=== PATIENT | female | born 1995 | race Caucasian/White ===

== ENCOUNTER 2019-04-13 07:37 | Outpatient (REF) | payer MEDICAID, SELFPAY ==
[2019-04-13 21:18] LABS: ALT 34 U/L (14-59); AST 16 U/L (15-37); Albumin 3.7 g/dL (3.4-5.0); Alkaline Phosphatase 77 U/L (46-116); BUN 15 mg/dL (7-18); Bilirubin, Total 0.5 mg/dL (0.2-1.0); CREATININE 0.71 mg/dL (0.55-1.02); Calcium 9.2 mg/dL (8.5-10.1); Calculated LDL 105 mg/dL; Chloride 106 mmol/L (98-107); Cholesterol 172 mg/dL (<200); Glucose 87 mg/dL (74-106); HDL Cholesterol 29 mg/dL (40-60); Potassium 4.3 mmol/L (3.5-5.1); Sodium 143 mmol/L (136-145); Total Protein 7.7 g/dL (6.4-8.2); Triglyceride 191 mg/dL (<150)
[2019-04-14 14:46] LABS: Hemoglobin A1C 5.5 % (3.8-5.6)
== END 2019-04-13 07:57 ==
LOC: NCHCN 07:37
PROVIDERS: PCP Family Medicine; Visit Provider Family Medicine
DX: R73.09 Other abnormal glucose (principal); E66.9 Obesity, unspecified; Z00.00 Encounter for general adult medical examination without abnormal findings
CPT/HCPCS: 80053; 80061; 83036

== ENCOUNTER 2019-04-16 11:45 | Outpatient (REF) | payer MEDICAID, SELFPAY ==
--- NOTE | 2019-04-16 10:45 | PAPFT_PTH ---
PATIENT: Roselyn Gracia LOC: [facility] U#:[id number] AGE/SX: 24/F ROOM: RE04/16/[address]: Cierra Lopez : 1995 BED: DIS: 04/16/2019 SPEC #: [id number] RECD: 04/17/19 13:17 STATUS: JOHN REJayy #: [id number] NII: 04/16/19 10:[address]: Cierra Lopez DEPT: [facility] Cytology RECD BY: Lala Sanford Tissues: 1 - CX/ENDOCX FOR PAP SMEARS Procedures: PAP THIN PREP/[facility] Screening Comments: [id number]
== END 2019-04-16 12:05 ==
LOC: NCHCN 11:45
PROVIDERS: PCP Family Medicine; Visit Provider Family Medicine
DX: Z12.4 Encounter for screening for malignant neoplasm of cervix (principal)
CPT/HCPCS: 88142

== ENCOUNTER 2020-04-22 10:59 | Outpatient (REF) | payer MEDICAID, SELFPAY ==
[2020-04-22 14:15] LABS: ALT 30 U/L (14-59); AST 20 U/L (15-37); Albumin 3.7 g/dL (3.4-5.0); Alkaline Phosphatase 85 U/L (46-116); Anion Gap 10.6 mmol/L (3-11); BUN 9 mg/dL (7-18); Bilirubin, Total 0.7 mg/dL (0.2-1.0); CO2 26.4 mmol/L (21.0-32.0); Calcium 8.9 mg/dL (8.5-10.1); Calculated LDL 172 mg/dL (<100); Chloride 98 mmol/L (98-107); Cholesterol 248 mg/dL (<200); Glucose 76 mg/dL (74-106); HDL Cholesterol 43 mg/dL (40-60); Potassium 3.6 mmol/L (3.5-5.1); Sodium 135 mmol/L (136-145); Total Protein 7.7 g/dL (6.4-8.2); Triglyceride 167 mg/dL (<150)
[2020-04-22 14:31] LABS: Hemoglobin A1C 5.3 % (<5.7)
== END 2020-04-22 11:19 ==
LOC: NCHCN 10:59
PROVIDERS: PCP Family Medicine; Visit Provider Family Medicine
DX: R73.09 Other abnormal glucose (principal); E88.81 Metabolic syndrome and other insulin resistance; E78.1 Pure hyperglyceridemia; E78.6 Lipoprotein deficiency; Z00.00 Encounter for general adult medical examination without abnormal findings
CPT/HCPCS: 80053; 80061; 83036

== ENCOUNTER 2020-07-05 09:32 | Outpatient (REF) | payer MEDICAID, SELFPAY ==
[2020-07-05 13:54] LABS: ALT 32 U/L (14-59); AST 18 U/L (15-37); Albumin 3.8 g/dL (3.4-5.0); Alkaline Phosphatase 99 U/L (46-116); Bilirubin, Total 0.7 mg/dL (0.2-1.0); Calculated LDL 101 mg/dL (<100); Cholesterol 162 mg/dL (<200); HDL Cholesterol 44 mg/dL (40-60); TSH (W/Ref FT4) 1.29 uIU/mL (0.36-3.74); Total Protein 7.8 g/dL (6.4-8.2); Triglyceride 87 mg/dL (<150)
[2020-07-05 14:07] LABS: Bilirubin, Direct 0.1 mg/dL (0.0-0.2)
== END 2020-07-05 09:33 | disposition home or self-care (01) ==
LOC: NCHCN 09:32
PROVIDERS: PCP Family Medicine; Visit Provider Family Medicine
DX: E78.5 Hyperlipidemia, unspecified (principal); E66.01 Morbid (severe) obesity due to excess calories; Z00.00 Encounter for general adult medical examination without abnormal findings
CPT/HCPCS: 80061; 80076; 84443

== ENCOUNTER 2022-03-13 13:27 | Outpatient (REF) | payer MEDICAID, SELFPAY ==
--- NOTE | 2022-03-13 10:20 | PAPFT_PTH ---
PATIENT: Roselyn Gracia LOC: [facility]#:[id number] AGE/SX: 26/F ROOM: RE03/13/[address]: Cierra Lopez : 1995 BED: DIS: 03/13/2022 SPEC #: [id number] RECD: 03/14/22 12:50 STATUS: JOHN REQ #: [id number] NII: 03/13/22 10:[address]: Cierra Lopez DEPT: [facility] Cytology RECD BY: Lala Sanford Tissues: 1 - CX/ENDOCX FOR PAP SMEARS Procedures: PAP THIN PREP/[facility] Screening Comments: [id number] (CHLAMYDIA/GC)
[2022-03-13 16:08] LABS: ALT 71 U/L (14-59); AST 25 U/L (15-37); Albumin 3.5 g/dL (3.4-5.0); Alkaline Phosphatase 81 U/L (46-116); Anion Gap 10.3 mmol/L (3-11); BUN 9 mg/dL (7-18); Bilirubin, Total 0.5 mg/dL (0.2-1.0); CO2 25.7 mmol/L (21.0-32.0); CREATININE 0.7 mg/dL (0.55-1.02); Calculated LDL 137 mg/dL (<100); Chloride 100 mmol/L (98-107); Cholesterol 224 mg/dL (<200); Estimated GFR 123.01 (mL/min/1.73m2); Glucose 97 mg/dL (74-106); HDL Cholesterol 42 mg/dL (40-60); Sodium 136 mmol/L (136-145); Total Protein 7.7 g/dL (6.4-8.2); Triglyceride 228 mg/dL (<150)
[2022-03-13 16:43] LABS: Hemoglobin A1C 5.3 % (<5.7)
[2022-03-15 15:08] LABS: Chlamydia Result Negative (Negative); GC Result Negative (Negative)
== END 2022-03-13 13:28 | disposition home or self-care (01) ==
LOC: NCHCN 13:27
PROVIDERS: PCP Family Medicine; Visit Provider Family Medicine
DX: E78.5 Hyperlipidemia, unspecified (principal); R73.09 Other abnormal glucose; Z00.00 Encounter for general adult medical examination without abnormal findings; Z12.4 Encounter for screening for malignant neoplasm of cervix; Z11.3 Encounter for screening for infections with a predominantly sexual mode of transmission
CPT/HCPCS: 80053; 80061; 87491; 87591; 88142; 83036

== ENCOUNTER 2022-12-13 11:56 | Outpatient (REF) | payer OTHER, SELFPAY ==
[2022-12-17 10:51] LABS: HBs Antibody, Quant 22.5 mIU/mL (See Note); Hepatitis B Surface Ab Positive (See Note)
[2022-12-17 11:28] LABS: Hepatitis C Ab w Rflx HCV PCR Negative (Negative)
[2022-12-17 12:04] LABS: HIV-1/2 Ag & Ab Screen Negative (Negative)
== END 2022-12-13 11:57 | disposition home or self-care (01) ==
LOC: NCHCN 11:56
PROVIDERS: PCP Family Medicine; Visit Provider Nurse Practitioner Family
DX: Z77.21 Contact with and (suspected) exposure to potentially hazardous body fluids (principal); Z11.59 Encounter for screening for other viral diseases; Z11.4 Encounter for screening for human immunodeficiency virus [HIV]; Z01.84 Encounter for antibody response examination
CPT/HCPCS: 86706; 86803; 87389

== ENCOUNTER 2022-12-28 22:47 | Outpatient (REF) | payer OTHER, SELFPAY ==
[2022-12-28 21:45] LABS: ALT 32 U/L (14-59); AST 22 U/L (15-37); Albumin 3.5 g/dL (3.4-5.0); Alkaline Phosphatase 90 U/L (46-116); Anion Gap 9.6 mmol/L (3-11); BUN 16 mg/dL (7-18); Bilirubin, Total 0.4 mg/dL (0.2-1.0); CO2 24.4 mmol/L (21.0-32.0); CREATININE 0.9 mg/dL (0.55-1.02); Calcium 9.4 mg/dL (8.5-10.1); Chloride 100 mmol/L (98-107); Estimated GFR 90.42 (mL/min/1.73m2); Glucose 106 mg/dL (74-106); Sodium 134 mmol/L (136-145); Total Protein 8.1 g/dL (6.4-8.2)
== END 2022-12-28 22:48 | disposition home or self-care (01) ==
LOC: NCHCN 22:47
PROVIDERS: PCP Family Medicine; Visit Provider Family Medicine
DX: R79.89 Other specified abnormal findings of blood chemistry (principal)
CPT/HCPCS: 80053

== ENCOUNTER 2023-05-14 17:21 | Outpatient (REF) | payer OTHER, SELFPAY ==
[2023-05-14 22:28] LABS: ALT 28 U/L (14-59); AST 18 U/L (15-37); Albumin 3.4 g/dL (3.4-5.0); Alkaline Phosphatase 90 U/L (46-116); Anion Gap 10.3 mmol/L (3-11); BUN 8 mg/dL (7-18); Bilirubin, Total 0.5 mg/dL (0.2-1.0); CO2 25.7 mmol/L (21.0-32.0); CREATININE 0.8 mg/dL (0.55-1.02); Chloride 102 mmol/L (98-107); Glucose 81 mg/dL (74-106); Potassium 3.5 mmol/L (3.5-5.1); Sodium 138 mmol/L (136-145); TSH (W/Ref FT4) 2.98 uIU/mL (0.36-3.74)
[2023-05-14 23:01] LABS: Hemoglobin A1C 5.2 % (<5.7)
[2023-05-15 13:46] LABS: Calculated LDL 146 mg/dL (<100); Cholesterol 224 mg/dL (<200); HDL Cholesterol 44 mg/dL (40-60); Triglyceride 173 mg/dL (<150)
[2023-05-15 14:01] LABS: Vitamin D 25 Total 27.2 ng/mL (30-100)
== END 2023-05-14 17:22 | disposition home or self-care (01) ==
LOC: NCHCN 17:21
PROVIDERS: PCP Family Medicine; Visit Provider Family Medicine
DX: Z00.00 Encounter for general adult medical examination without abnormal findings (principal)
CPT/HCPCS: 80053; 80061; 82306; 83036; 84443

== ENCOUNTER 2023-07-18 08:29 | Outpatient (REF) | payer OTHER, SELFPAY ==
[2023-07-18 15:07] LABS: ALT 32 U/L (14-59); AST 26 U/L (15-37); Albumin 3.5 g/dL (3.4-5.0); Alkaline Phosphatase 89 U/L (46-116); Anion Gap 12.9 mmol/L (3-11); BUN 11 mg/dL (7-18); Bilirubin, Total 0.7 mg/dL (0.2-1.0); CO2 23.1 mmol/L (21.0-32.0); CREATININE 0.8 mg/dL (0.55-1.02); Calcium 9.3 mg/dL (8.5-10.1); Calculated LDL 145 mg/dL (<100); Chloride 103 mmol/L (98-107); Cholesterol 226 mg/dL (<200); Glucose 85 mg/dL (74-106); HDL Cholesterol 44 mg/dL (40-60); Potassium 4.2 mmol/L (3.5-5.1); Sodium 139 mmol/L (136-145); Triglyceride 186 mg/dL (<150)
[2023-07-18 15:29] LABS: Vitamin D 25 Total 34.6 ng/mL (30-100)
== END 2023-07-18 08:30 | disposition home or self-care (01) ==
LOC: NCHCN 08:29
PROVIDERS: PCP Family Medicine; Visit Provider Family Medicine
DX: E78.5 Hyperlipidemia, unspecified (principal); E55.9 Vitamin D deficiency, unspecified
CPT/HCPCS: 80053; 80061; 82306

== ENCOUNTER 2024-06-09 10:17 | Outpatient (REF) | payer OTHER, SELFPAY ==
[2024-06-09 15:29] LABS: ALT 41 U/L (14-59); AST 26 U/L (15-37); Albumin 3.5 g/dL (3.4-5.0); Alkaline Phosphatase 105 U/L (46-116); Anion Gap 7.7 mmol/L (3-11); BUN 10 mg/dL (7-18); Bilirubin, Total 0.76 mg/dL (0.2-1.0); CO2 27.3 mmol/L (21.0-32.0); CREATININE 0.8 mg/dL (0.55-1.02); Calcium 9.5 mg/dL (8.5-10.1); Calculated LDL 153 mg/dL (<100); Chloride 105 mmol/L (98-107); Cholesterol 242 mg/dL (<200); Estimated GFR 102.86 (mL/min/1.73m2); Glucose 79 mg/dL (74-106); HDL Cholesterol 43 mg/dL (>or=50); Potassium 4.1 mmol/L (3.5-5.1); Sodium 140 mmol/L (136-145); Total Protein 7.9 g/dL (6.4-8.2); Triglyceride 233 mg/dL (<150); Vitamin D 25 Total 38.3 ng/mL (30-100)
== END 2024-06-09 10:18 | disposition home or self-care (01) ==
LOC: NCHCN 10:17
PROVIDERS: PCP Family Medicine; Visit Provider Family Medicine
DX: E78.5 Hyperlipidemia, unspecified (principal); E55.9 Vitamin D deficiency, unspecified; E66.9 Obesity, unspecified
CPT/HCPCS: 80053; 80061; 82306

== ENCOUNTER 2024-06-16 15:56 | Outpatient (REF) | payer OTHER, SELFPAY ==
--- NOTE | 2024-06-16 13:54 | PAPFT_PTH ---
PATIENT: Roselyn Gracia LOC: [facility] U#:[id number] AGE/SX: 29/F ROOM: RE06/16/[address]: Cierra Lopez : 1995 BED: DIS: 06/16/2024 SPEC #: [id number] RECD: 06/17/24 12:58 STATUS: JOHN REJayy #: [id number] NII: 06/16/24 13:[address]: Cierra Lopez DEPT: [facility] Cytology RECD BY: Lala Sanford Tissues: 1 - CX/ENDOCX FOR PAP SMEARS Procedures: PAP THIN PREP/[facility] Screening Comments: [id number] (CHLAMYDIA/GC)
[2024-06-18 12:46] LABS: Chlamydia Result Negative (Negative); GC Result Negative (Negative)
== END 2024-06-16 15:57 | disposition home or self-care (01) ==
LOC: NCHCN 15:56
PROVIDERS: PCP Family Medicine; Visit Provider Family Medicine
DX: Z11.51 Encounter for screening for human papillomavirus (HPV) (principal); Z01.419 Encounter for gynecological examination (general) (routine) without abnormal findings; Z11.3 Encounter for screening for infections with a predominantly sexual mode of transmission; R87.619 Unspecified abnormal cytological findings in specimens from cervix uteri
CPT/HCPCS: 87491; 87591; 88142

== ENCOUNTER 2024-10-13 18:27 | Outpatient (REF) | payer OTHER, SELFPAY ==
[2024-10-13 16:40] LABS: ALT 28 U/L (14-59); AST 17 U/L (15-37); Albumin 3.5 g/dL (3.4-5.0); Alkaline Phosphatase 80 U/L (46-116); Anion Gap 10.1 mmol/L (3-11); BUN 10 mg/dL (7-18); Bilirubin, Total 0.9 mg/dL (0.2-1.0); CO2 25.9 mmol/L (21.0-32.0); Calcium 9.5 mg/dL (8.5-10.1); Calculated LDL 139 mg/dL (<100); Chloride 101 mmol/L (98-107); Cholesterol 215 mg/dL (<200); Estimated GFR 120.74 (mL/min/1.73m2); Glucose 84 mg/dL (74-106); HDL Cholesterol 38 mg/dL (>or=50); Potassium 4.3 mmol/L (3.5-5.1); Sodium 137 mmol/L (136-145); Total Protein 7.9 g/dL (6.4-8.2); Triglyceride 194 mg/dL (<150)
== END 2024-10-13 18:28 | disposition home or self-care (01) ==
LOC: NCHCN 18:27
PROVIDERS: PCP Family Medicine; Visit Provider Family Medicine
DX: E78.5 Hyperlipidemia, unspecified (principal)
CPT/HCPCS: 80053; 80061